=== PATIENT | female | born 1960 | race Caucasian/White ===

== ENCOUNTER 2016-12-17 05:17 | Emergency (ER) | payer OTHER ==
[~2016-12-17] VITALS: Ht 147.3 cm; Wt 54.5 kg
[2016-12-17 05:40] LABS: BASOPHILS % (AUTO) 0 % (0-2); EOSINOPHILS % (AUTO) 0 % (0-4); LYMPHOCYTES # (AUTO) 2.4 X10^3; MEAN CORPUSCULAR HEMOGLOBIN 28.9 PG (26.0-34.0); MEAN CORPUSCULAR HGB CONC 31.5 g/dL (31.0-37.0); MEAN CORPUSCULAR VOLUME 92 FL (80-100); MEAN PLATELET VOLUME 9.5 FL (6.0-9.5); MONOCYTES # (AUTO) 0.6 X10^3; MONOCYTES % (AUTO) 5 % (3-11); NEUTROPHILS # (AUTO) 8.5 X10^3; NEUTROPHILS % (AUTO) 74 % (51-67); PLATELET COUNT 428 10^3uL (150-450); WHITE BLOOD COUNT 11.46 10^3uL (4.0-11.0)
[2016-12-17 05:47] LABS: ALBUMIN 4.5 g/dL (3.4-5.0); ALKALINE PHOSPHATASE 120 U/L (38-126); ANION GAP 18.6 MEQ/L (3-15); BUN/CREATININE RATIO 17 (10-20); CALCULATED IONIZED CALCIUM 4.3 mg/dL (3.8-4.6); CREATINE KINASE 57 U/L (30-135); TOTAL PROTEIN 7.7 g/dL (6.4-8.5)
[2016-12-17 06:10] LABS: BILIRUBIN,URINE Negative (Negative); CLARITY,URINE Clear; COLOR,URINE Yellow; GLUCOSE, URINE (UA) Negative (Negative); LEUKOCYTE ESTERASE ,URINE Negative (Negative); UROBILINOGEN,URINE 0.2 mg/dL (0.2-1.0)
[2016-12-17 06:13] LABS: URINE CENTRIFUGED VOLUME 12 mL
[2016-12-17 06:20] LABS: RBC,URINE 0-2 /HPF
[2016-12-17] MEDS ORDERED: LORazepam 2 MG/ML (ATIVAN) 1 ML VIAL IV ONE (06:45)
[2016-12-17] MEDS ORDERED: HYDROmorphone 1 MG/ML (DILAUDID) SYRINGE IV ONE (06:45)
--- NOTE | 2016-12-17 07:23 | NUR ---
Report given by Beata GASCA.
--- NOTE | 2016-12-17 07:35 | NUR ---
Assisted to toilet, voided. Alert and oriented, tolerates well.
[2016-12-17] MEDS ORDERED: LEVETIRACETAM IV 1,000 MG in SODIUM CHLORIDE 100 ML IV ONE (07:55)
[2016-12-17 09:02] VITALS: BP 116/82
== END 2016-12-17 09:04 | disposition home or self-care (01) ==
LOC: ED 05:21
DX: G40.409 Other generalized epilepsy and epileptic syndromes, not intractable, without status epilepticus (principal)
CPT/HCPCS: 36415; 70470; 71010; 80053; 81003; 81015; 82550; 82553; 84146; 84484; 85025; 85610; 85730; 86140; 93005; 96365; 96375; 99285; J1170; J1953; J2060; J7050; Q9967; 93010; 99291

== ENCOUNTER → 2016-12-17 | Outpatient (CLI) | payer OTHER | LOC: EMS 05:12 | PROVIDERS: ATTEND Family Medicine | DX: R56.9 Unspecified convulsions (principal) ==

== ENCOUNTER 2017-01-02 15:30 | Emergency (ER) | payer OTHER ==
[~2017-01-02] VITALS: Ht 147.3 cm; Wt 41.0 kg
[2017-01-02] MEDS ORDERED: ONDANSETRON 2 MG/ML (Z0FRAN) 2 ML VIAL IV STA ×2 (16:22→18:32)
[2017-01-02] MEDS ORDERED: SODIUM CHLORIDE FLUSH 3 ML SYR IV PRN (16:25)
[2017-01-02] MEDS ORDERED: HYDROmorphone 2 MG/ML (DILAUDID) 1 ML SYRINGE IV ONE ×2 (16:25→18:35)
[2017-01-02] MEDS: SODIUM CHLORIDE FLUSH 10 ML SYR IV PRN ×2 (16:55→18:45)
--- NOTE | 2017-01-02 17:48 | NUR ---
PT SLEEPING WITH HUSB AT BEDSIDE. CL
[2017-01-02] MEDS ORDERED: LORazepam 2 MG/ML (ATIVAN) 1 ML VIAL IV STA (18:32)
--- NOTE | 2017-01-02 19:50 | NUR ---
Pt back from MRI and assisted into stretcher.
[2017-01-02 20:06] LABS: BASOPHILS % (AUTO) 0 % (0-2); EOSINOPHILS % (AUTO) 0 % (0-4); LYMPHOCYTES # (AUTO) 0.9 X10^3; MEAN CORPUSCULAR HGB CONC 32.2 g/dL (31.0-37.0); MEAN CORPUSCULAR VOLUME 90 FL (80-100); MEAN PLATELET VOLUME 9.6 FL (6.0-9.5); MONOCYTES # (AUTO) 0.8 X10^3; MONOCYTES % (AUTO) 7 % (3-11); NEUTROPHILS # (AUTO) 10.2 X10^3; NEUTROPHILS % (AUTO) 85 % (51-67); PLATELET COUNT 535 10^3uL (150-450); WHITE BLOOD COUNT 11.98 10^3uL (4.0-11.0)
[2017-01-02 20:15] LABS: ANION GAP 14.6 MEQ/L (3-15); CALCULATED IONIZED CALCIUM 4.5 mg/dL (3.8-4.6); MAGNESIUM* 2.1 mg/dL (1.6-2.3); TOTAL PROTEIN 7.3 g/dL (6.4-8.5)
[2017-01-02] MEDS ORDERED: cloNIDine 0.1 MG (CATAPRES) TAB PO ONE (21:05)
[2017-01-02 21:57] VITALS: BP 157/89
== END 2017-01-02 21:33 | disposition home or self-care (01) ==
LOC: ED 15:31
DX: G40.409 Other generalized epilepsy and epileptic syndromes, not intractable, without status epilepticus (principal); C18.9 Malignant neoplasm of colon, unspecified; C79.51 Secondary malignant neoplasm of bone
CPT/HCPCS: 36415; 70553; 80053; 83735; 85025; 96374; 96375; 96376; 99283; A9579; J1170; J2060; J2405

== ENCOUNTER → 2017-01-02 | Outpatient (CLI) | payer OTHER | LOC: EMS 15:20 | PROVIDERS: ATTEND Emergency Medicine | DX: R56.9 Unspecified convulsions (principal); R41.82 Altered mental status, unspecified ==

== ENCOUNTER → 2017-02-15 | Outpatient (CLI) | payer OTHER ==
[~2017-02-15] MED LIST: AC325T PO; ALPR0.257 PO; ASCO1TAB22 PO; ASCO500T7 PO; CALC-140 PO; CHOL200018 PO; CHOL40002 PO; CHOL400T36 PO; CTLP20T PO; DEXA2TAB PO; DOCU100C8 PO; FENT1PAT11 TD; FENT1PAT8 TD; FISH OIL OMEGA1 EACH PO; FLC1T PO; FNT50TD TD; GBPN100C PO; HDR4T PO; HYDR-3702 PO; HYDROXYSUT PO; KCL10CCR PO; LD5PT TOP; LEVE500T PO; LEVO50TA6 PO; LEVO75TA6 PO; LISI1TAB8 PO; LVT.025T PO; METH2.5T PO; MULT-954 PO; OMEP20TA PO; PHYT100T PO; POLY17PO2 PO; POTA99TA3 PO; RANI-419 PO; RANI300T6 PO; SENN-126 PO; SULF-221 PO; TAMO10TA PO; TAMO20TA2 PO; VANC1VIA IV; VITA400C58 PO; VITA40TA PO; [UNRECOGNIZED DRUG - CODE] PO
--- NOTE | 2017-02-15 10:09 | Diagnostic Imaging Report ---
PROCEDURE: US abdomen complete. TECHNIQUE: Multiple real-time grayscale images were obtained over the abdomen in various projections. INDICATION: Elevated lipase. COMPARISON: 10/23/2016. FINDINGS: The gallbladder is surgically absent. The liver appears unremarkable. The pancreas itself is largely obscured by overlying bowel gas. No acute fluid collection or ascites is identified. Gas partially obscures the spleen which appears within normal limits for size and showing no focal abnormality. The right kidney is 8.9 cm and the left 10.2 cm. There is no hydronephrosis. No stone or solid or cystic renal mass is apparent. The aorta and IVC are partially obscured by overlying gas but, where visualized, are normal. IMPRESSION: Absent gallbladder with no pathological biliary dilatation. Obscuration of the pancreas by overlying bowel gas but no ascites or acute fluid collection is evident. The unobstructed kidneys appear nonacute. No ascites. Dictated by: Dictated on workstation # [id number]
== END ==
LOC: RAD 07:16
PROVIDERS: ATTEND Family Medicine
DX: R10.11 Right upper quadrant pain (principal); R74.8 Abnormal levels of other serum enzymes; Z90.49 Acquired absence of other specified parts of digestive tract
CPT/HCPCS: 76700